=== PATIENT | male | born 1975 | race Caucasian/White ===

== ENCOUNTER 2017-03-14 21:52 | Emergency (ER) | payer MEDICARE, MEDICAID ==
[~2017-03-14] VITALS: Ht 172.7 cm; Wt 81.6 kg
[~2017-03-14 21:52] MED LIST: BACTRIM DS 8001 TA1 PO; ECHINACEA PO; FLEXERIL10 M1 PO; NATURAL FISH1000 MG PO; PROBIOTIC FORMU1 CA1 PO; PROZAC40 MG PO; VALIUM10 MG PO; VICODIN 7.5/501 EACH PO; VOLTAREN75 MG PO; [UNRECOGNIZED DRUG - OTHER] PO
[2017-03-14] MEDS ORDERED: XANAX 1MG TABLET1 MG PO (22:20)
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
[2017-03-15 00:31] VITALS: BP 145/91
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
--- OUTSIDE RECORDS SUMMARY | 2017-03-16 02:22 | External Medical Summary Rpt ---
Author Author LUC[employer]ler[employer], LUC[employer]A Roblero Organization [employer] Address Unknown Phone Unavailable
--- OUTSIDE RECORDS SUMMARY | 2017-03-16 02:22 | External Medical Summary Rpt ---
Author Author , Organization [employer] Address Unknown Phone Unavailable Care Team Providers Care Flight Surveyor Name Role Phone PERLA FLORY, Unavailable Unavailable PERLA FLORY JENNIFER KARIS, Unavailable Unavailable JENNIFER KARIS [place] Un[facility] BABITA CHRISTINA, BABITA Unavailable Unavailable CHRISTINA VALENCIA MAKENNA, VALENCIA MAKENNA Unavailable Unavailable RUIZ CHRISTINA, RUIZ Unavailable Unavailable CHRISTINA [facility] Unavailable Unavailable INC, [facility] Unavailable Unavailable HOSPITAL, [facility] PAYNE AMA, PAYNE Unavailable Unavailable AMA [facility] Unavailable Unavailable SERVICES, [facility] SANTIAGO LEIDA, SANTIAGO LEIDA Unavailable Unavailable Purpose Continuity of Care Document - 12-21-2012 through 2016 Problems Code Diagnosis DOS Provider Status [id number] LAC W/O FB 09-01-2016 [facility] & MEM [facility]OSP PERIOCULAR INC AREA INIT ENC Z23 ENCOUNTER 09-01-2016 [facility]P IMMUNIZATIO INC N M531 CERVICOBRAC 08-12-2016 [place] H[facility]IR[facility] SYNDROME C CENTE M9901 SEGMENTAL & 08-12-2016 [place] SOMATIC CHIROPRACTI DYSFUNCTION C CENTE CERVICAL REGION M9902 SEGMENTAL & 08-12-2016 [place] SOMATIC [facility]I DYSFUNCTION C CENTE THORACIC REGION [id number] SPRAIN 08-12-2016 [place] LIGAMENTS CHIROPRACTI T-SPINE C CENTE INITIAL ENCOUNTER J209 ACUTE 07-18-2016 [facility] M5012 CERVICAL 07-15-2016 [place] DISC D/O CHIROPRACTI W/RADICULOP C CENTE ATHY MID-CERV RGN K122 CELLULITIS 12-31-2015 [facility] 34130 OPEN WOUND 06-14-2013 [facility] EMERGENCY WITHOUT SERVICES [place] N 23494 CONTUSION 06-14-2013 [facility] EMERGENCY SERVICES E8888 OTHER FALL 06-14-2013 [facility] V065 NEED 06-14-2013 [facility] PROPHYLACTI MEM HOSP C INC VACCINATION W/TETANUS-D [facility] 7282 MUSCULAR 03-09-2013 [place] WASTING AND CHIROPRACTI [...] C CENTE REGION NEC 5609 UNSPECIFIED 12-21-2012 [facility] EMERGENCY SERVICES OBSTRUCTION 66601 OTHER 12-21-2012 [place] [facility] DISORDERS IMAGING ASS OF INTESTINE 41220 OTHER 12-21-2012 [place] SPECIFIED MEDICAL DISORDER OF IMAGING ASS KIDNEY AND URETER Immunization Name Date Route CVX Reacti Commen Provid Is Given on t er Refuse d TDAP NANDO No VACCIN 2015 ON MEM E 7 HOSP YRS/> INC IM TDAP NANDO No VACCIN 2012 ON MEM E 7 HOSP YRS/> INC IM Procedures Procedure DOS Code Location Performer Comment IM ADM 49713 QU[facility] RIBEIRO PRQ ID 6 [facility] SUBQ/IM INC INC NJXS 1 VACCINE TDAP 63305 [facility] R[facility]O VACCINE 7 6 [facility] YRS/> IM INC INC SIMPLE 89973 [facility] RIBEIRO REPAIR 6 [facility] F/E/E/N/L INC INC /M 5.1CM-7.5 CM CHIROPRAC 16863 SABRINA PAYNE TIC 6 AMA MANIPULAT CHIROPRAC ELSY TX TIC CENTE SPINAL 1-2 REGIONS CHIROPRAC 20990 SABRINA PAYNE TIC 6 AMA MANIPULAT CHIROPRAC ELSY TX TIC CENTE SPINAL 1-2 REGIONS INJECTION J1040 QUINTIN VALENCIA MAKENNA 6 [facility] DNISOLONE ACETATE 80 MG THERAPEUT 43956 QUINTIN VALENCIA MAKENNA IC 6 [facility] TIC/DX INJECTION SUBQ/IM CHIROPRAC 73796 SABRINA PAYNE TIC 6 AMA MANIPULAT CHIROPRAC ELSY TX TIC CENTE SPINAL 1-2 REGIONS CHIROPRAC 37170 SABRINA PAYNE TIC 6 AMA MANIPULAT CHIROPRAC ELSY TX TIC CENTE SPINAL 1-2 REGIONS TDAP 88507 QU[facility]IN RIBEIRO VACCINE 7 3 [facility]OS[facility] YRS/> IM INC INC IM ADM 01677 [facility] RIBEIRO PRQ ID 3 [facility] SUBQ/IM INC INC NJXS 1 VACCINE SIMPLE 55556 LINDY RUIZ REPAIR 3 EMERGENCY CHRISTINA SCALP/NEC SERVICES K/AX/WILTON T/TRUNK 2.5CM/< RADEX 10189 QUINTIN RIBEIRO FOREARM 2 3 MEM HOS[facility]OS[facility] VIEWS INC INC APPL 78756 SABRINA DUNCAN MODALITY 3 FLORY 1/> AREAS [place]IROPRAC [place] [address] [place] PERLA 1/> AREAS 3 FLORY EACH 15 CHIROPRAC MIN TIC [place] [address] [place] PERLA 1/> AREAS 3 FLORY EACH 15 CHIROPRAC MINUTES TIC CENTE MASSAGE CHIROPRAC 91371 [place] DUNC[place] TIC 3 FLORY MANIPULAT CHIROPRAC ELSY TX TIC CENTE SPINAL 3-[place] [address] [place] PERLA 1/> AREAS 3 FLORY EACH 15 CHIROPRAC MINUTES TIC CENTE MASSAGE CHIROPRAC 12221 [place] PERLA TIC 3 FLORY MANIPULAT CHIROPRAC ELSY TX TIC CENTE SPINAL 3-[address] [place] [address] [place] PERLA 1/> AREAS 3 FLORY EACH 15 CHIROPRAC MIN TIC CENTE NEUROMUSC REEDUCA APPL 71673 [place] PERLA MODALITY 3 FLORY 1/> AREAS CHIROPRAC TRACTION TIC CENTE MECHANICA L CHIROPRAC 74849 SABRINA DUNCAN TIC 3 FLORY MANIPULAT CHIROPRAC ELSY TX TIC CENTE SPINAL 3-[place] [address] SABRINA DUNCAN 1/> AREAS 3 FLORY EACH 15 [place]OP[place] [address] SABRINA DUNCAN 1/> AREAS 3 FLORY EACH 15 CHIROPRAC MIN TIC CENTE NEUROMUSC REEDUCA APPL 22918 SABRINA DUNCAN MODALITY 3 FLORY 1/> AREAS CHIROPRAC TRACTION TIC CENTE MECHANICA L APPL 86967 SABRINA SANTIAGO LEIDA MODALITY 3 1/> AREAS [place] [address] SABRINA SANTIAGO LEIDA 1/> AREAS 3 EACH 15 CHIROPRAC MINUTES TIC CENTE MASSAGE CHIROPRAC 31131 SABRINA SANTIAGO LEIDA TIC 3 MANIPULAT CHIROPRAC ELSY TX TIC CENTE SPINAL 1-2 REGIONS CHIROPRAC 72544 SABRINA SANTIAGO LEIDA TIC 3 MANIPULAT CHIROPRAC ELSY TX TIC CENTE SPINAL 1-2 REGIONS RADEX 92752 SABRINA SANTIAGO LEIDA SPINE 3 LUMBOSACR CHIROPRAC AL 2/3 TIC CENTE VIEWS APPL 38513 SABRINA SANTIAGO LEIDA MODALITY 3 1/> AREAS CHIROPRAC TRACTION TIC CENTE MECHANICA L RADEX 91996 SABRINA SANTIAGO LEIDA SPINE 3 CERVICAL CHIROPRAC [address] [place] [address] [place] JENNIFER ABDOMEN & 3 MEDICAL KARIS PELVIS IMAGING W/O ASS CONTRAST MATERIAL 3D 95150 [place] JENNIFER RENDERING 3 MEDICAL KARIS IMAGING W/INTERP& ASS POSTPROC DIFF WORK STATION Encounters Encounter Start End Date Code Location Performer Type Date HOSPITAL QUINTIN Leal 6 6 [facility] T EMERGENCY 46326 QUINTIN 6 6 [facility] DEPARTMEN INC T VISIT LOW/MODER SEVERITY OFFICE 83388 QUINTIN [facility] 15 MINUTES OFFICE 04650 QUINTIN JC OUTPATIEN 6 6 [facility] 15 MINUTES OFFICE 56255 QU[facility] JC OUTPATIEN 5 5 [facility] 15 MINUTES EMERGENCY 88966 QUINTIN 3 3 [facility] DEPARTMEN INC T VISIT LOW/MODER SEVERITY HOSPITAL QUINTIN Leal 3 3 [facility] INC T EMERGENCY 99900 LINDY MELCHOR 3 3 EMERGENCY [facility] DEPARTMEN SERVICES T VISIT HIGH/URGE NT SEVERITY OFFICE 82855 SABRINA DUNCAN OUTPATIEN 3 3 FLORY T VISIT CHIROPRAC 15 TIC CENTE MINUTES OFFICE 19486 SABRINA CASAREZ OUTPATIEN 3 3 T NEW 30 CHIROPRAC MINUTES TIC CENTE EMERGENCY 71529 LINDY MELCHOR DEPT 3 3 EMERGENCY [facility] VISIT SERVICES HIGH SEVERITY& THREAT FUNCJ
--- OUTSIDE RECORDS SUMMARY | 2017-03-16 02:22 | External Medical Summary Rpt ---
Demographics Preferred Language Comoran Marital Status Unknown Alevism Affiliation Unknown Race Unknown Ethnic Group Unknown Author Author , Organization [employer] Address Unknown Phone Unavailable Purpose Continuity of Care Document - through 2016 Immunization No patient found.
--- OUTSIDE RECORDS SUMMARY | 2017-03-16 02:22 | External Medical Summary Rpt ---
Author Author , Organization [employer] Address Unknown Phone Unavailable Care Team Providers Care Book Mender Name Role Phone PERLA FLORY, Unavailable Unavailable PERLA FLORY JENNIFER KARIS, Unavailable Unavailable JENNIFER KARIS [place] Unavailable Unavailable [facility] BABITA CHRISTINA, BABITA Unavailable Unavailable CHRISTINA VALENCIA MAKENNA, VALENCIA MAKENNA Unavailable Unavailable RUIZ CHRISTINA, RUIZ Unavailable Unavailable CHRISTINA [facility] Unavailable Unavailable INC, [facility] Unavailable Unavailable HOSPITAL, [facility] PAYNE AMA, PAYNE Unavailable Unavailable AMA [facility] Unavailable Unavailable [facility], [facility] Unavailable Unavailable SERVICES, [facility] SANTIAGO LEIDA, SANTIAGO LEIDA Unavailable Unavailable Purpose Continuity of Care Document - 12-21-2012 through 2016 Problems Code Diagnosis DOS Provider Status [id number] LAC W/O FB 09-01-2016 [facility] EYELID & MEM HOSP PERIOCULAR INC AREA INIT ENC Z23 ENCOUNTER 09-01-2016 [facility] IMMUNIZATIO INC N M531 CERVICOBRAC 08-12-2016 [place] H[facility] CHIROPRACTI SYNDROME C CENTE M9901 SEGMENTAL & 08-12-2016 [place] SOMATIC CHIROPRACTI DYSFUNCTION C CENTE CERVICAL REGION M9902 SEGMENTAL & 08-12-2016 [place] SOMATIC CHIROPRACTI DYSFUNCTION C CENTE THORACIC REGION [id number] SPRAIN 08-12-2016 [place] LIGAMENTS CHIROPRACTI T-SPINE C CENTE INITIAL ENCOUNTER J209 ACUTE 07-18-2016 [facility] M5012 CERVICAL 07-15-2016 [place] DISC D/O CHIROPRACTI W/RADICULOP C CENTE ATHY MID-CERV RGN K122 CELLULITIS 12-31-2015 [facility] [place] 15885 OPEN WOUND 06-14-2013 [facility] EMERGENCY WITHOUT SERVICES MENTION COMPLICATIO N 21403 CONTUSION 06-14-2013 [facility] EMERGENCY SERVICES E8888 OTHER FALL 06-14-2013 [facility] V065 NEED 06-14-2013 [facility] PROPHYLACTI [facility] HOS[facility] C INC VACCINATION W/TETANUS-D [facility] 7282 MUSCULAR 03-09-2013 [place] WASTING AND [...] C CENTE REGION NEC 5609 UNSPECIFIED 12-21-2012 [facility] EMERGENCY SERVICES OBSTRUCTION 71918 OTHER 12-21-2012 [place] [facility]CTIONAL [facility]ICAL DISORDERS IMAGING ASS OF INTESTINE 25834 OTHER 12-21-2012 [place] SPECIFIED MEDICAL DISORDER OF IMAGING ASS KIDNEY AND URETER Immunization Name Date Route CVX Reacti Commen Provid Is Given on t er Refuse d TDAP NANDO No VACCIN 2015 ON MEM E 7 HOSP YRS/> INC IM TDAP NANDO No VACCIN 2012 ON MEM E 7 HOSP YRS/> INC IM Procedures Procedure DOS Code Location Performer Comment IM ADM 50273 QUINTIN RIBEIRO PRQ ID 6 [facility] SUBQ/IM INC INC NJXS 1 VACCINE TDAP 24551 QU[facility] RIBEIRO VACCINE 7 6 [facility] YRS/> IM INC INC SIMPLE 83373 QU[facility] RIBEIRO REPAIR 6 [facility] F/E/E/N/L INC INC /M 5.1CM-7.5 CM CHIROPRAC 00255 SABRINA PAYNE TIC 6 AMA MANIPULAT CHIROPRAC ELSY TX TIC CENTE SPINAL 1-2 REGIONS CHIROPRAC 06142 SABRINA PAYNE TIC 6 AMA MANIPULAT CHIROPRAC ELSY TX TIC CENTE SPINAL 1-2 REGIONS INJECTION J1040 QUINTIN VALENCIA MAKENNA 6 [facility] DNISOLONE ACETATE 80 MG THERAPEUT 87358 QUINTIN VALENCIA MAKENNA IC 6 [facility] TIC/DX INJECTION SUBQ/IM CHIROPRAC 90395 SABRINA PAYNE TIC 6 AMA MANIPULAT CHIROPRAC ELSY TX TIC CENTE SPINAL 1-2 REGIONS CHIROPRAC 55335 SABRINA PAYNE TIC 6 AMA MANIPULAT CHIROPRAC ELSY TX TIC CENTE SPINAL 1-2 REGIONS TDAP 85751 QU[facility] RIBEIRO VACCINE 7 3 [facility] H[facility]OS[facility] YRS/> IM INC INC IM ADM 00143 [facility] RIBEIRO PRQ ID 3 [facility] SUBQ/IM INC INC NJXS 1 VACCINE SIMPLE 60517 LINDY RUIZ REPAIR 3 EMERGENCY CH[facility]STINA SCALP/NEC SERVICES K/AX/WILTON T/TRUNK 2.5CM/< RADEX 95165 QUINTIN RIBEIRO FOREARM 2 3 MEM HOS[facility] MEM [facility]OS[facility] VIEWS INC INC APPL 70384 SABRINA DUNCAN MODALITY 3 FLORY 1/> AREAS CHIROPRAC [place] [address] [place] PERLA 1/> AREAS 3 FLORY EACH 15 CHIROPRAC MIN [place] [address] [place] PERLA 1/> AREAS 3 FLORY EACH 15 CHIROPRAC MINUTES TIC CENTE MASSAGE CHIROPRAC 30909 [place] DUNC[place] TIC 3 FLORY MANIPULAT CHIROPRAC ELSY TX TIC CENTE SPINAL 3-[address] [place] [address] [place] PERLA 1/> AREAS 3 FLORY EACH 15 CHIROPRAC MINUTES TIC CENTE MASSAGE CHIROPRAC 59684 [place] PERLA TIC 3 FLORY MANIPULAT CHIROPRAC ELSY TX TIC CENTE SPINAL 3-[address] [place] [address] [place] PERLA 1/> AREAS 3 FLORY EACH 15 CHIROPRAC MIN TIC CENTE NEUROMUSC REEDUCA APPL 62802 [place] PERLA MODALITY 3 FLORY 1/> AREAS CHIROPRAC TRACTION TIC CENTE MECHANICA L CHIROPRAC 50645 SABRINA DUNCAN TIC 3 FLORY MANIPULAT CHIROPRAC ELSY TX TIC CENTE SPINAL 3-[place] [address] SABRINA DUNCAN 1/> AREAS 3 FLORY EACH 15 [place]OPR[place] [address] SABRINA DUNCAN 1/> AREAS 3 FLORY EACH 15 CHIROPRAC MIN TIC CENTE NEUROMUSC REEDUCA APPL 60016 SABRINA DUNCAN MODALITY 3 FLORY 1/> AREAS CHIROPRAC TRACTION TIC CENTE MECHANICA L APPL 77300 SABRINA SANTIAGO LEIDA MODALITY 3 1/> AREAS [place]IROPR[place] [address] SABRINA SANTIAGO LEIDA 1/> AREAS 3 EACH 15 CHIROPRAC MINUTES TIC CENTE MASSAGE CHIROPRAC 00980 SABRINA SANTIAGO LEIDA TIC 3 MANIPULAT CHIROPRAC ELSY TX TIC CENTE SPINAL 1-2 REGIONS CHIROPRAC 90820 SABRINA SANTIAGO LEIDA TIC 3 MANIPULAT CHIROPRAC ELSY TX TIC CENTE SPINAL 1-2 REGIONS RADEX 62923 SABRINA SANTIAGO LEIDA SPINE 3 LUMBOSACR CHIROPRAC AL 2/3 TIC CENTE VIEWS APPL 05125 SABRINA SANTIAGO LEIDA MODALITY 3 1/> AREAS CHIROPRAC TRACTION TIC CENTE MECHANICA L RADEX 73786 SABRINA SANTIAGO LEIDA SPINE 3 CERVICAL CHIROPRAC 2 [address] [place] [address] [place] JENNIFER ABDOMEN & 3 MEDICAL KARIS PELVIS IMAGING W/O ASS CONTRAST MATERIAL 3D 85162 [place] JENNIFER RENDERING 3 MEDICAL KARIS IMAGING W/INTERP& ASS POSTPROC DIFF WORK STATION Encounters Encounter Start End Date Code Location Performer Type Date HOSPITAL QUINTIN Leal 6 6 [facility] T EMERGENCY 99129 QU[facility]IN 6 6 [facility] INC T VISIT LOW/MODER SEVERITY OFFICE 37056 [facility] 15 MINUTES OFFICE 52811 QU[facility]IN JC OUTPATIEN 6 6 [facility] 15 MINUTES OFFICE 82905 QU[facility] JC OUTPATIEN 5 5 [facility]OSP[facility] 15 MINUTES EMERGENCY 09576 QUINTIN 3 3 [facility] DEPART[facility] INC T VISIT LOW/MODER SEVERITY HOSPITAL QUINTIN Leal 3 3 [facility] INC T EMERGENCY 50416 LINDY MELCHOR 3 3 EMERGENCY [facility] DEPARTMEN SERVICES T VISIT HIGH/URGE NT SEVERITY OFFICE 92084 SABRINA DUNCAN OUTPATIEN 3 3 FL[facility] T VISIT CHIROPRAC 15 TIC CENTE MINUTES OFFICE 38865 SABRINA CASAREZ OUTPATIEN 3 3 T NEW 30 CHIROPRAC MINUTES TIC CENTE EMERGENCY 42317 LINDY MELCHOR DEPT 3 3 EMERGENCY [facility] VISIT SERVICES HIGH SEVERITY& THREAT FUNCJ
--- OUTSIDE RECORDS SUMMARY | 2017-03-16 02:22 | External Medical Summary Rpt ---
Demographics Preferred Language Serbian Marital Status Unknown Rastafarian Affiliation Unknown Race Unknown Ethnic Group Unknown Author Author , Organization [employer] Address Unknown Phone Unavailable Purpose Continuity of Care Document - through 2016 Immunization No patient found.
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
--- OUTSIDE RECORDS SUMMARY | 2017-03-16 02:32 | External Medical Summary Rpt ---
Author Author , Organization [employer] Address Unknown Phone Unavailable Care Team Providers Care Chronometer Tester Name Role Phone PERLA FLORY, Unavailable Unavailable PERLA FLORY JENNIFER KARIS, Unavailable Unavailable JENNIFER KARIS [place] Unavailable [facility] BABITA CHRISTINA, BABITA Unavailable Unavailable CHRISTINA VALENCIA MAKENNA, VALENCIA MAKENNA Unavailable Unavailable RUIZ CHRISTINA, RUIZ Unavailable Unavailable CHRISTINA [facility] Unavailable Unavailable INC, [facility] Unavailable Unavailable HOSPITAL, [facility] PAYNE AMA, PAYNE Unavailable Unavailable AMA [facility] Unavailable Unavailable [facility], [facility] Unavailable Unavailable SERVICES, [facility] SANTIAGO LEIDA, SANTIAGO LEIDA Unavailable Unavailable Purpose Continuity of Care Document - 12-21-2012 through 2016 Problems Code Diagnosis DOS Provider Status [id number] LAC W/O FB 09-01-2016 [facility]OSP PERIOCULAR INC AREA INIT ENC Z23 ENCOUNTER 09-01-2016 [facility] IMMUNIZATIO INC N M531 CERVICOBRAC 08-12-2016 [place] H[facility] CHIROP[facility]I SYNDROME C CENTE M9901 SEGMENTAL & 08-12-2016 [place] SOMATIC CHIROPRACTI DYSFUNCTION C CENTE CERVICAL REGION M9902 SEGMENTAL & 08-12-2016 [place] [facility] DYSFUNCTION C CENTE THORACIC REGION [id number] SPRAIN 08-12-2016 [place] LIGAMENTS CHIROPRACTI T-SPINE C CENTE INITIAL ENCOUNTER J209 ACUTE 07-18-2016 [facility] M5012 CERVICAL 07-15-2016 [place] DISC D/O CHIROPRACTI W/RADICULOP C CENTE ATHY MID-CERV RGN K122 CELLULITIS 12-31-2015 [facility] 83576 OPEN WOUND 06-14-2013 [facility] EMERGENCY WITHOUT SERVICES MENTION COMPLICATIO N 03118 CONTUSION 06-14-2013 [facility] EMERGENCY SERVICES E8888 OTHER FALL 06-14-2013 [facility] V065 NEED 06-14-2013 [facility] PROPHYLACTI [facility] C INC VACCINATION W/TETANUS-D [facility] 7282 MUSCULAR 03-09-2013 [place] WASTING AND CHIROPRACTI [...] C CENTE REGION NEC 5609 UNSPECIFIED 12-21-2012 [facility] OBSTRUCTION 92707 OTHER 12-21-2012 [place] [facility]CTION[facility]ICAL DISORDERS IM[facility]ING ASS OF INTESTINE 88916 OTHER 12-21-2012 [place] SPECIFIED MEDICAL DISORDER OF IMAGING ASS KIDNEY AND URETER Immunization Name Date Route CVX Reacti Commen Provid Is Given on t er Refuse d TDAP NANDO No VACCIN 2015 ON MEM E 7 HOSP YRS/> INC IM TDAP NANDO No VACCIN 2012 ON MEM E 7 HOSP YRS/> INC IM Procedures Procedure DOS Code Location Performer Comment IM ADM 29033 QU[facility]IN RIBEIRO PRQ ID 6 [facility] SUBQ/IM INC INC NJXS 1 VACCINE TDAP 71243 QU[facility]IN RIBEIRO VACCINE 7 6 [facility] YRS/> IM INC INC SIMPLE 56740 [facility] RIBEIRO REPAIR 6 [facility] F/E/E/N/L INC INC /M 5.1CM-7.5 CM CHIROP[facility]AC 18734 SABRINA PAYNE TIC 6 AMA MANIPULAT CHIROPRAC ELSY TX TIC CENTE SPINAL 1-2 REGIONS INJECTION J1040 QUINTIN VALENCIA MAKENNA 6 [facility] DNISOLONE ACETATE 80 MG THERAPEUT 37412 QUINTIN VALENCIA MAKENNA IC 6 [facility] TIC/DX INJECTION SUBQ/IM CHIROPRAC 32516 SABRINA PAYNE TIC 6 AMA MANIPULAT CHIROPRAC ELSY TX TIC CENTE SPINAL 1-2 REGIONS CHIROPRAC 75037 SABRINA PAYNE TIC 6 AMA MANIPULAT CHIROPRAC ELSY TX TIC CENTE SPINAL 1-2 REGIONS CHIROPRAC 78436 SABRINA PAYNE TIC 6 AMA MANIPULAT CHIROPRAC ELSY TX TIC CENTE SPINAL 1-2 REGIONS RADEX 71577 QUINTIN RIBEIRO FOREARM 2 3 [facility] VIEWS INC INC TDAP 84224 QUINTIN RIBEIRO VACCINE 7 3 [facility] YRS/> IM INC INC IM ADM 33465 QU[facility]IN RIBEIRO PRQ ID 3 [facility] SUBQ/IM INC INC NJXS 1 VACCINE SIMPLE 46989 LINDY RUIZ REPAIR 3 EMERGENCY [place] SCALP/NEC SERVICES K/AX/WILTON T/TRUNK 2.5CM/< [place] [address] SABRINA DUNCAN 1/> AREAS 3 FLORY EACH 15 CHIROPRAC MINUTES TIC CENTE MASSAGE CHIROPRAC 08593 SABRINA DUNCAN TIC 3 LFORY MANIPULAT CHIROPRAC ELSY TX TIC CENTE SPINAL 3-4 REGIONS APPL 73417 [place] PERLA MODALITY 3 FLORY 1/> AREAS [place] [address] [place] PERLA 1/> AREAS 3 FLORY EACH 15 CHIROPRAC MIN [place] [address] [place] PERLA 1/> AREAS 3 FLORY EACH 15 CHIROPRAC MIN TIC CENTE NEUROMUSC REEDUCA APPL 24096 [place] PERLA MODALITY 3 FLORY 1/> AREAS [place]IROPRAC [place] [address] [place] PERLA 1/> AREAS 3 FLORY EACH 15 CHIROPRAC MINUTES TIC CENTE MASSAGE CHIROPRAC 86961 SABRINA DUNCAN TIC 3 FLORY MANIPULAT CHIROPRAC ELSY TX TIC CENTE SPINAL 3-4 REGIONS CHIROPRAC 80305 SABRINA DUNCAN TIC 3 FLORY MANIPULAT CHIROPRAC ELSY TX TIC CENTE SPINAL 3-[place] [address] SABRINA DUNCAN 1/> AREAS 3 FLORY EACH 15 CHIROPRAC MINUTES TIC CENTE MASSAGE APPL 69914 SABRINA DUNCAN MODALITY 3 FLORY 1/> AREAS [place]IROPR[place] [address] SABRINA PERLA 1/> AREAS 3 FLORY EACH 15 CHIROPRAC MIN TIC CENTE NEUROMUSC REEDUCA CHIROPRAC 44574 SABRINA SANTIAGO LEIDA TIC 3 MANIPULAT CHIROPRAC ELSY TX TIC CENTE SPINAL 1-[place] [address] SABRINA SANTIAGO LEIDA 1/> AREAS 3 EACH 15 CHIROPRAC MINUTES TIC CENTE MASSAGE APPL 18469 SABRINA SANTIAGO LEIDA MODALITY 3 1/> AREAS CHIROPRAC TRACTION TIC CENTE MECHANICA L APPL 14766 SABRINA SANTIAGO LEIDA MODALITY 3 1/> AREAS CHIROPRAC TRACTION TIC CENTE MECHANICA L RADEX 20834 SABRINA SANTIAGO LEIDA SPINE 3 LUMBOSACR CHIROPRAC AL 2/3 TIC CENTE VIEWS RADEX 04493 SABRINA SANTIAGO LEIDA SPINE 3 CERVICAL [facility] 2 OR 3 TIC CENTE VIEWS CHIROPRAC 27468 SABRINA SANTIAGO LEIDA TIC 3 MANIPULAT CHIROPRAC ELSY TX TIC CENT[place] SPINAL 1-[address] [place] [address] [place] [facility] ABDOMEN & 3 MEDICAL KARIS PELVIS IMAGING W/O ASS CONTRAST MATERIAL 3D 44460 [place] JENNIF[facility] RENDERING 3 MEDICAL KARIS IMAGING W/INTERP& ASS POSTPROC DIFF WORK STATION Encounters Encounter Start End Date Code Location Performer Type Date HOSPITAL QUINTIN Leal 6 6 [facility] OUTPATIEN INC T EMERGENCY 53817 QUINTIN 6 6 [facility] DEPARTMEN INC T VISIT LOW/MODER SEVERITY OFFICE 73597 QUINTIN VALENCIA [facility] OUTPATI 6 6 [facility] 15 MINUTES OFFICE 38243 QUINTIN JC OUTPATIEN 6 6 [facility] T VISIT HOSPITAL 15 MINUTES OFFICE 47605 QUINTIN JC OUTPATIEN 5 5 [facility] T VISIT HOSPITAL 15 MINUTES EMERGENCY 21321 QUINTIN 3 3 [facility] DEPARTMEN INC T VISIT LOW/MODER SEVERITY HOSPITAL QUINTIN Leal 3 3 [facility] OUTPATIEN INC T EMERGENCY 96915 LINDY MELCHOR 3 3 EMERGENCY [facility] DEPARTMEN SERVICES T VISIT HIGH/URGE NT SEVERITY OFFICE 28473 SABRINA DUNCAN OUTPATIEN 3 3 FL[facility] T VISIT [facility] 15 TIC CENTE MINUTES OFFICE 60510 SABRINA CASAREZ OUTPATIEN 3 3 T NEW 30 CHIROPRAC MINUTES TIC CENTE EMERGENCY 27671 LINDY MELCHOR DEPT 3 3 EMERGENCY [facility] VISIT SERVICES HIGH SEVERITY& THREAT FUNCJ
--- OUTSIDE RECORDS SUMMARY | 2017-03-16 02:32 | External Medical Summary Rpt ---
Author Author , Organization [employer] Address Unknown Phone Unavailable Care Team Providers Care Director Of Content And Programming Name Role Phone PERLA FLORY, Unavailable Unavailable PERLA FLORY JENNIFER KARIS, Unavailable Unavailable JENNIFER KARIS [place] Unavailable [facility] BABITA CHRISTINA, BABITA Unavailable Unavailable CHRISTINA VALENCIA MAKENNA, VALENCIA MAKENNA Unavailable Unavailable RUIZ CHRISTINA, RUIZ Unavailable Unavailable CHRISTINA [facility] Unavailable Unavailable INC, [facility] Unavailable Unavailable HOSPITAL, [facility] PAYNE AMA, PAYNE Unavailable Unavailable AMA [facility] Unavailable Unavailable [facility], [facility] Unavailable Unavailable SERVICES, [facility] SANTIAGO LEIDA, SANTIAGO LEIDA Unavailable Unavailable Purpose Continuity of Care Document - 12-21-2012 through 2016 Problems Code Diagnosis DOS Provider Status [id number] LAC W/O FB 09-01-2016 [facility] MEM [facility]OS[facility] PERIOCULAR INC AREA INIT ENC Z23 ENCOUNTER 09-01-2016 [facility] IMMUNIZATIO INC N M531 CERVICOBRAC 08-12-2016 [place] [facility] SYNDROME C CENTE M9901 SEGMENTAL & 08-12-2016 [place] SOMATIC CHIROPRACTI DYSFUNCTION C CENTE CERVICAL REGION M9902 SEGMENTAL & 08-12-2016 [place] [facility] DYSFUNCTION C CENTE THORACIC REGION [id number] SPRAIN 08-12-2016 [place] LIGAMENTS CHIROPRACTI T-SPINE C CENTE INITIAL ENCOUNTER J209 ACUTE 07-18-2016 [facility] M5012 CERVICAL 07-15-2016 [place] DISC D/O CHIROPRACTI W/RADICULOP C CENTE ATHY MID-CERV RGN K122 CELLULITIS 12-31-2015 [facility] 24138 OPEN WOUND 06-14-2013 [facility] EMERGENCY WITHOUT SERVICES [place] N 10809 CONTUSION 06-14-2013 [facility] EMERGENCY SERVICES E8888 OTHER FALL 06-14-2013 [facility] V065 NEED 06-14-2013 [facility]LA[facility]I [facility] C INC VACCINATION W/TETANUS-D [facility] 7282 MUSCULAR 03-09-2013 [place] WASTING AND [...] C CENTE REGION NEC 5609 UNSPECIFIED 12-21-2012 [facility] OBSTRUCTION 08310 OTHER 12-21-2012 [place] [facility] MEDICAL DISORDERS IMAGING ASS OF INTESTINE 30436 OTHER 12-21-2012 [place] SPECIFIED MEDICAL DISORDER OF IMAGING ASS KIDNEY AND URETER Immunization Name Date Route CVX Reacti Commen Provid Is Given on t er Refuse d TDAP NANDO No VACCIN 2015 ON MEM E 7 HOSP YRS/> INC IM TDAP NANDO No VACCIN 2012 ON [facility] E 7 HOSP YRS/> INC IM Procedures Procedure DOS Code Location Performer Comment IM ADM 30829 QUINTIN RIBEIRO PRQ ID 6 [facility] SUBQ/IM INC INC NJXS 1 VACCINE TDAP 69602 QUINTIN RIBEIRO VACCINE 7 6 [facility] YRS/> IM INC INC SIMPLE 66676 QU[facility] RIBEIRO REPAIR 6 [facility] F/E/E/N/L INC INC /M 5.1CM-7.5 CM CHIROP[facility] 86882 SABRINA PAYNE TIC 6 AMA MANIPULAT CHIROPRAC ELSY TX TIC CENTE SPINAL 1-2 REGIONS INJECTION J1040 QUINTIN VALENCIA MAKENNA 6 [facility] DNISOLONE ACETATE 80 MG THERAPEUT 07977 QUINTIN VALENCIA MAKENNA IC 6 [facility] TIC/DX INJECTION SUBQ/IM CHIROPRAC 96366 SABRINA PAYNE TIC 6 AMA MANIPULAT CHIROPRAC ELSY TX TIC CENTE SPINAL 1-2 REGIONS CHIROPRAC 07247 SABRINA PAYNE TIC 6 AMA MANIPULAT CHIROPRAC ELSY TX TIC CENTE SPINAL 1-2 REGIONS CHIROPRAC 86014 SABRINA PAYNE TIC 6 AMA MANIPULAT CHIROPRAC ELSY TX TIC CENTE SPINAL 1-2 REGIONS RADEX 59466 QUINTIN RIBEIRO FOREARM 2 3 [facility] VIEWS INC INC TDAP 86225 QUINTIN RIBEIRO VACCINE 7 3 [facility] YRS/> IM INC INC IM ADM 98381 QUINTIN RIBEIRO PRQ ID 3 [facility] SUBQ/IM INC INC NJXS 1 VACCINE SIMPLE 47807 LINDY RUIZ REPAIR 3 EMERGENCY [place] SCALP/NEC SERVICES K/AX/WILTON T/TRUNK 2.5CM/< [place] [address] SABRINA DUNCAN 1/> AREAS 3 FLORY EACH 15 CHIROPRAC MINUTES TIC CENTE MASSAGE CHIROPRAC 02147 SABRINA DUNCAN TIC 3 FLORY MANIPULAT CHIROPRAC ELSY TX TIC CENTE SPINAL 3-4 REGIONS APPL 41656 [place] PERLA MODALITY 3 FLORY 1/> AREAS CHIROPRAC [place] [address] [place] PERLA 1/> AREAS 3 FLORY EACH 15 CHIROPRAC MIN [place] [address] [place] PERLA 1/> AREAS 3 FLORY EACH 15 CHIROPRAC MIN TIC CENTE NEUROMUSC REEDUCA APPL 96375 [place] PERLA MODALITY 3 FLORY 1/> AREAS CHIROPRAC [place] [address] [place] PERLA 1/> AREAS 3 FLORY EACH 15 CHIROPRAC MINUTES TIC CENTE MASSAGE CHIROPRAC 19029 SABRINA DUNCAN TIC 3 FLORY MANIPULAT CHIROPRAC ELSY TX TIC CENTE SPINAL 3-4 REGIONS CHIROPRAC 59189 SABRINA DUNCAN TIC 3 FLORY MANIPULAT CHIROPRAC ELSY TX TIC CENTE SPINAL 3-[place] [address] SABRINA DUNCAN 1/> AREAS 3 FLORY EACH 15 CHIROPRAC MINUTES TIC CENTE MASSAGE APPL 41800 SABRINA DUNCAN MODALITY 3 FLORY 1/> AREAS CHIROPRAC [place] [address] SABRINA PERLA 1/> AREAS 3 FLORY EACH 15 CHIROPRAC MIN TIC CENTE NEUROMUSC REEDUCA CHIROPRAC 07568 SABRINA SANTIAGO LEIDA TIC 3 MANIPULAT CHIROPRAC ELSY TX TIC CENTE SPINAL 1-[address] [place] [address] SABRINA SANTIAGO LEIDA 1/> AREAS 3 EACH 15 CHIROPRAC MINUTES TIC CENTE MASSAGE APPL 52358 SABRINA SANTIAGO LEIDA MODALITY 3 1/> AREAS CHIROPRAC TRACTION TIC CENTE MECHANICA L APPL 45065 SABRINA SANTIAGO LEIDA MODALITY 3 1/> AREAS CHIROPRAC TRACTION TIC CENTE MECHANICA L RADEX 44741 SABRINA SANTIAGO LEIDA SPINE 3 LUMBOSACR CHIROPRAC AL 2/3 TIC CENTE VIEWS RADEX 82033 SABRINA SANTIAGO LEIDA SPINE 3 CERVICAL CHIROPRAC 2 OR 3 TIC CENTE VIEWS CHIROPRAC 62993 SABRINA SANTIAGO LEIDA TIC 3 MANIPULAT CHIROPRAC ELSY TX TIC CENT[place] SPINAL 1-[address] [place] [address] [place] ABDOMEN & 3 MEDICAL KARIS PELVIS IMAGING W/O ASS CONTRAST MATERIAL 3D 55229 [place] [facility] RENDERING 3 MEDICAL KARIS IMAGING W/INTERP& ASS POSTPROC DIFF WORK STATION Encounters Encounter Start End Date Code Location Performer Type Date HOSPITAL QUINTIN Leal 6 6 [facility]GENC[facility] 43321 QUINT[facility] 6 6 [facility] T VISIT LOW/MODER SEVERITY OFFICE 21240 QUINTIN [facility] OUT[facility]I 6 6 [facility] 15 MINUTES OFFICE 77750 [facility] OUTPATIEN 6 6 [facility] 15 MINUTES OFFICE 12259 [facility] OUTPATIEN 5 5 [facility] 15 MINUTES EMERGENCY 15669 QUINTIN 3 3 [facility] T VISIT LOW/MODER SEVERITY HOSPITAL QUINTIN Leal 3 3 [facility] T EMERGENCY 23885 LINDY MELCHOR 3 3 EMERGENCY [facility] DEPARTMEN SERVICES T VISIT HIGH/URGE NT SEVERITY OFFICE 74739 SABRINA DUNCAN OUTPATIEN 3 3 FLORY T VISIT CHIROP[facility]AC 15 TIC CENTE MINUTES OFFICE 32342 SABRINA CASAREZ OUTPATIEN 3 3 T NEW 30 CHIROPRAC MINUTES TIC CENTE EMERGENCY 64045 LINDY MELCHOR DEPT 3 3 EMERGENCY [facility] VISIT SERVICES HIGH SEVERITY& THREAT FUNCJ
--- OUTSIDE RECORDS SUMMARY | 2017-03-16 02:32 | External Medical Summary Rpt ---
Demographics Preferred Language Guyanese Marital Status Unknown Cheondoism Affiliation Unknown Race Unknown Ethnic Group Unknown Author Author , Organization [employer] Address Unknown Phone Unavailable Purpose Continuity of Care Document - through 2016 Immunization No patient found.
--- OUTSIDE RECORDS SUMMARY | 2017-03-16 02:32 | External Medical Summary Rpt ---
Demographics Preferred Language Gibraltarian Marital Status Unknown Yarsanism Affiliation Unknown Race Unknown Ethnic Group Unknown Author Author , Organization [employer] Address Unknown Phone Unavailable Purpose Continuity of Care Document - through 2016 Immunization No patient found.
== END 2017-03-15 00:35 ==
LOC: ER 21:52
DX: F10.10 Alcohol abuse, uncomplicated (principal); V29.9XXA Motorcycle rider (driver) (passenger) injured in unspecified traffic accident, initial encounter